=== PATIENT | female | born 1950 | race Caucasian/White ===

== ENCOUNTER 2016-08-14 16:29 | Emergency (ER) | payer MEDICARE, BC ==
[2016-08-14] MEDS ORDERED: SODIUM CHLORIDE 0.9% FLUSH 10 ML SOL IV PRN (16:38)
[2016-08-14] MEDS ORDERED: NITROGLYCERIN 0.4 MG TAB SL PRN (16:38)
[2016-08-14 16:55] VITALS: RESP 20; TEMP 98; O2SAT 99
[2016-08-14 17:05] LABS: BASOPHILS % (AUTO) 1 % (0-3); EOSINOPHILS % (AUTO) 4 % (0-9); HEMATOCRIT 36 % (35-47); MEAN CORPUSCULAR HGB CONC 33.8 gm/dl (32.0-36.0); MONOCYTES % (AUTO) 10.3 % (0-12); NEUTROPHILS % (AUTO) 63.2 % (37-80)
[2016-08-14 17:16] LABS: CALCIUM 9.1 mg/dl (8.5-10.1); GLOM FILT RATE 47 mL/min (>60); POTASSIUM 3.8 mMol/L (3.5-5.1); SODIUM 136 mMol/L (136-145)
[2016-08-14 17:53] VITALS: BP 128/66; PULSE 61
== END 2016-08-14 17:40 | disposition home or self-care (01) | DRG 392 ==
LOC: ED 16:29
DX: K21.9 Gastro-esophageal reflux disease without esophagitis (principal)
CPT/HCPCS: 71010; 80048; 82550; 84484; 85025; 93005; 99283; 99284

== ENCOUNTER 2017-01-13 07:53 | Day surgery (SDC) | payer MEDICARE, BC ==
[~2017-01-13 07:53] MED LIST: LIDOCAINE HCL 1% MPF SOL ONE; PROPOFOL 500 MG/50 ML EMU IV ONE
[2017-01-13 10:12] VITALS: TEMP 97.6
[2017-01-13 10:38] VITALS: RESP 18; O2SAT 97
[2017-01-13 10:42] VITALS: BP 96/53; PULSE 81
== END 2017-01-13 11:20 | disposition home or self-care (01) | DRG 951 ==
LOC: SURG 07:53
PROVIDERS: ATTEND Internal Medicine Gastroenterology
DX: Z12.11 Encounter for screening for malignant neoplasm of colon (principal); D12.0 Benign neoplasm of cecum; Z86.010 Personal history of colon polyps; K57.30 Diverticulosis of large intestine without perforation or abscess without bleeding; K64.8 Other hemorrhoids; D12.3 Benign neoplasm of transverse colon; K62.1 Rectal polyp
CPT/HCPCS: J2001; J2704

== ENCOUNTER 2017-09-28 14:43 | Outpatient (CLI) | payer MEDICARE, BC ==
[2017-01-13 10:38] VITALS: O2SAT 97
== END 2017-09-28 14:44 | disposition home or self-care (01) | DRG 561 ==
LOC: CONVCARE 14:43
PROVIDERS: ATTEND Orthopaedic Surgery
DX: Z47.89 Encounter for other orthopedic aftercare (principal); R93.7 Abnormal findings on diagnostic imaging of other parts of musculoskeletal system
CPT/HCPCS: 73562

== ENCOUNTER 2019-02-01 12:59 | Outpatient (CLI) | payer BC, MEDICARE, OTHER ==
[2017-01-13 10:38] VITALS: O2SAT 97
[2019-02-01 14:51] LABS: CHOL/HDL RATIO 3.4 (2.2-4.5); LDL CHOLESTEROL,CALCULATED 83.2 mg/dl (50-130); LDL/HDL RATIO 1.6 (1.1-3.1)
== END 2019-02-01 13:00 | disposition home or self-care (01) | DRG 642 ==
LOC: CONVCARE 12:59
PROVIDERS: ATTEND Internal Medicine Cardiovascular Disease
DX: E78.5 Hyperlipidemia, unspecified (principal)
CPT/HCPCS: 36415; 80061